=== PATIENT | female | born 1965 | race Caucasian/White ===

== ENCOUNTER 2019-09-20 07:57 | Observation (INO) | payer MEDICAID ==
[~2019-09-20] VITALS: Ht 162.6 cm; Wt 40.9 kg
[2019-09-20 08:43] LABS: BASOPHILS 0.6 % (0-2); HEMATOCRIT 39.4 % (36.0-48.0); HEMOGLOBIN 12.9 g/dL (12-16); IMMATURE GRANULOCYTES 0.3 % (0-5); LYMPHOCYTES 19.9 % (15-50); MCH 32.8 pg (26.0-34.0); MCHC 32.7 g/dL (31.0-37.0); MCV 100.3 fL (80.0-100.0); MONOCYTES 12.1 % (2-11); NEUTROPHILS 65.1 % (40-80); PLATELET COUNT 131 10x3/uL (130-400); RBC 3.93 10x6/uL (4.00-5.40); WBC 6.6 10x3/uL (4.8-10.8)
[2019-09-20 08:49] LABS: INR 0.95 (0.85-1.17); PROTIME 12.7 SECONDS (11.6-15.0)
[2019-09-20 08:50] LABS: APTT 34.6 SECONDS (22.8-39.4)
[2019-09-20 08:51] VITALS: BP 135/97
[2019-09-20 08:51] LABS: D-DIMER-QUANTITATIVE 0.84 ug/mLFEU (0.20-0.54)
[2019-09-20 09:16] LABS: CALC OSMOLALITY 279 mosm/kg (275-300); CALCIUM 8.8 mg/dL (8.5-10.1); CARBON DIOXIDE 28.6 mmol/L (21.0-32.0); CHLORIDE - SERUM 104 mmol/L (98-107); CREATININE - SERUM 1.2 mg/dL (0.6-1.3); GLUCOSE 89 mg/dL (74-106); POTASSIUM - SERUM 4.5 mmol/L (3.5-5.1); SODIUM 139 mmol/L (136-145); UREA NITROGEN 22 mg/dL (7-18); eGFR NON AFRICAN AMERICAN 50 mL/min (90-120)
[2019-09-20 09:32] LABS: ALBUMIN 3.4 g/dL (3.4-5.0); ALKALINE PHOSPHATASE 89 U/L (30-120); ALT (SGPT) 25 U/L (10-68); BILIRUBIN - TOTAL 0.34 mg/dL (0.2-1.3); CKMB 0.7 U/L (0.0-3.6); CREATINE KINASE 40 UL (21-215); MAGNESIUM - SERUM 2.1 mg/dL (1.8-2.4); PROTEIN - SERUM 7.5 g/dL (6.4-8.2)
[2019-09-20 09:45] LABS: TROPONIN-I < 0.017 ng/mL (0.000-0.060)
[2019-09-20 10:10] VITALS: BP 185/116
[2019-09-20 10:38] VITALS: BP 137/89
--- NOTE | 2019-09-20 13:17 | NUR ---
CALLED REPORT TO MARCIA SMITH AT 13:17
--- NOTE | 2019-09-20 13:32 | NUR ---
TRANSFER FROM ER BY W/C. MASONINTED TO ROOM. CALL LIGHT IN REACH. WILL CONT. PLAN OF CARE.
[2019-09-20 13:45] VITALS: BP 137/89; BMI 15.4
[2019-09-20 14:47] VITALS: Ht 162.6 cm; Wt 40.9 kg
[2019-09-20 15:53] LABS: CKMB 0.4 U/L (0.0-3.6); CREATINE KINASE 44 UL (21-215)
[2019-09-20 16:14] LABS: TROPONIN-I < 0.017 ng/mL (0.000-0.060)
[2019-09-20 18:10] VITALS: BP 148/78
[2019-09-20 20:00] VITALS: BP 162/86
--- NOTE | 2019-09-20 20:15 | NUR ---
EVENING ROUNDS COMPLETED. PT AAOX4, AFVSS, NO S/S OF DISTRESS. ALTHOUGH PT C/O PAIN IN SHOULDER AND BACK. PRN MORPHINE GIVEN. PT DENIES ANY FURTHER NEEDS AT THIS TIME. WILL CPOC.
[2019-09-20 20:43] LABS: CKMB 0.7 U/L (0.0-3.6); CREATINE KINASE 41 UL (21-215)
[2019-09-20 20:49] LABS: TROPONIN-I < 0.017 ng/mL (0.000-0.060)
[2019-09-21] VITALS: BP 140/76
[2019-09-21 02:51] LABS: BASOPHILS 0.3 % (0-2); EOSINOPHILS 1.8 % (0-7); HEMATOCRIT 31.8 % (36.0-48.0); IMMATURE GRANULOCYTES 0.3 % (0-5); LYMPHOCYTES 19.6 % (15-50); MCH 31.8 pg (26.0-34.0); MCHC 31.4 g/dL (31.0-37.0); MCV 101.3 fL (80.0-100.0); MEAN PLATELET VOLUME 9.2 fL (7.4-10.4); MONOCYTES 10.7 % (2-11); NEUTROPHILS 67.3 % (40-80); RDW 14.3 % (11.5-14.5); WBC 7.2 10x3/uL (4.8-10.8)
[2019-09-21 02:52] LABS: PLATELET COUNT 96 10x3/uL (130-400); RBC 3.14 10x6/uL (4.00-5.40)
[2019-09-21 03:15] LABS: ALBUMIN 2.8 g/dL (3.4-5.0); ALKALINE PHOSPHATASE 77 U/L (30-120); ALT (SGPT) 20 U/L (10-68); BILIRUBIN - TOTAL 0.21 mg/dL (0.2-1.3); CALC OSMOLALITY 280 mosm/kg (275-300); CALCIUM 7.9 mg/dL (8.5-10.1); CARBON DIOXIDE 28.8 mmol/L (21.0-32.0); CHLORIDE - SERUM 108 mmol/L (98-107); CKMB 0.5 U/L (0.0-3.6); CREATINE KINASE 39 UL (21-215); CREATININE - SERUM 1.1 mg/dL (0.6-1.3); GLUCOSE 93 mg/dL (74-106); MAGNESIUM - SERUM 1.9 mg/dL (1.8-2.4); SODIUM 140 mmol/L (136-145); UREA NITROGEN 19 mg/dL (7-18); eGFR NON AFRICAN AMERICAN 55 mL/min (90-120)
[2019-09-21 03:17] LABS: PLATELET ESTIMATE NORMAL
[2019-09-21 03:18] LABS: TROPONIN-I < 0.017 ng/mL (0.000-0.060)
[2019-09-21 05:31] VITALS: BP 120/68
[2019-09-21 08:19] VITALS: BP 149/85
--- NOTE | 2019-09-21 08:55 | NUR ---
AM MEDS GIVEN AT THIS TIME. ALSO GAVE 4MG OF MORPHINE FOR PAIN LEVEL OF 10/10. 4MG OF ZOFRAN GIVEN FOR NAUSEA. PT DENIES ANY OTHER NEEDS AT THIS TIME. CALL LIGHT IN REACH, NAD NOTED, WILL CONTINUE TO MONITOR.
[2019-09-21 12:21] VITALS: BP 141/88
--- NOTE | 2019-09-21 13:25 | NUR ---
4MG OF MORPHINE GIVEN FOR PAIN LEVEL OF 9/10. PT DENIES ANY OTHER NEEDS AT THIS TIME. CALL LIGHT IN REACH, NAD NOTED, WILL CONTINUE TO MONITOR.
[2019-09-21 16:20] VITALS: BP 157/86
[2019-09-21] MEDS ORDERED: OMNICEF300 MG PO (16:39)
[2019-09-21] MEDS ORDERED: AZITHROMYCIN500 MG PO (16:39)
--- NOTE | 2019-09-21 17:36 | NUR ---
PROVIDED VERBAL AND WRITTEN DISCHARGE TEACHING TO PT AND . PT VERY UPSET BECASUE SHE IS BEING DISCHARGE AND SHE IS STILL HAVING BACK PAIN, AND SHE WAS NOT GIVEN NOTHING FOR HER BP. INFORMED PT THAT SHE COULD CALL THE MEDICARE NUMBER IF SHE DID NOT AGREE WITH BEING DISCHARGE, PT STATED " I AM NOT STAYING WHERE I AM NOT WANTED. PT REFUSED TO BE WHEELED DOWN TO FRONT ENTRANCE. PT LEFT UNIT VIA ABULATORY WITH ALL BELONGIGNS, ACCOMPANIED BY , NAD NOTED.
== END 2019-09-21 17:42 | disposition home or self-care (01) ==
LOC: EDBD 07:57 → D.ER 07:57 → D.M2 10:21 → OBSVTIME 12:40 → D.M2 09-21 17:42
PROVIDERS: Family Medicine; ADMIT Emergency Medicine; ATTEND Emergency Medicine
DX: J18.9 Pneumonia, unspecified organism (principal); F17.203 Nicotine dependence unspecified, with withdrawal; R94.31 Abnormal electrocardiogram [ECG] [EKG]; I20.0 Unstable angina; I10 Essential (primary) hypertension

== ENCOUNTER 2019-09-24 18:24 | Inpatient (IN) | payer MEDICAID ==
[~2019-09-24] VITALS: Ht 162.6 cm; Wt 45.4 kg
--- NOTE | ~2019-09-24 | EEG ---
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 CT of head demonstrated diffuse atrophy. PROCEDURE: EEG done as a routine bedside portable recording using the standard 10-20 international electrode system. A 16-channel was used with 17th as EKG. Photic stimulation done as activation procedures. DESCRIPTION OF PROCEDURE: EEG opens with the patient awake with the record displaying a fairly well organized posterior dominant rhythm of 8-9 and occasionally 9-10 Hz, some moderate amplitude, symmetric and attenuates with eye opening. Occasional to frequent bilateral independent single theta slow waves were seen more prominent in the bitemporal regions. No epileptiform change such as spike, polyspike or spike and wave was seen. Photic stimulation did not yield significant driving response. There was a photomyogenic or photoparoxysmal response seen. IMPRESSION: Mildly abnormal EEG with theta slowing that could suggest mild cortical dysfunction. No evidence of seizure disorder or evidence of active seizure focus was found on this recording. TRANSINT:[id number] Voice Confirmation ID: [id number] DOCUMENT ID: [id number] MERVAT HOLM MD CC: [id number] DICTATION DATE: 09/27/19 1301 ACCOUNTING FILE CLERK: 09/28/19 1020 DIS IN 09/26/19 [facility] [address] [place] [address]
[~2019-09-24 18:24] MED LIST: AZITHROMYCIN500 MG PO; OMNICEF300 MG PO
[2019-09-24 18:39] LABS: BILIRUBIN NEGATIVE (NEGATIVE); GLUCOSE 50 mg/dL (NEGATIVE); KETONE MODERATE mg/dL (NEGATIVE); NITRITE NEGATIVE (NEGATIVE); UROBILINOGEN NORMAL (NORMAL)
[2019-09-24 18:41] LABS: BACTERIA MODERATE /hpf (NEGATIVE); EPITHELIAL CELLS 0-5 /hpf (0-5); GRANULAR CAST OCC /lpf (NONE SEEN); RED CELLS - URINE 0-5 /hpf (0-5)
[2019-09-24 18:44] LABS: UDS - AMPHET NEGATIVE QUAL (NEGATIVE); UDS - BARB NEGATIVE QUAL (NEGATIVE); UDS - BENZO NEGATIVE QUAL (NEGATIVE); UDS - COCAINE NEGATIVE QUAL (NEGATIVE); UDS - OPIATE POSITIVE QUAL (NEGATIVE); UDS - PCP NEGATIVE QUAL (NEGATIVE); UDS - THC POSITIVE QUAL (NEGATIVE)
[2019-09-24 18:44] LABS: BASOPHILS 0.3 % (0-2); EOSINOPHILS 0.1 % (0-7); HEMOGLOBIN 14.5 g/dL (12-16); IMMATURE GRANULOCYTES 0.6 % (0-5); LYMPHOCYTES 9.5 % (15-50); MCH 33.2 pg (26.0-34.0); MCV 100.7 fL (80.0-100.0); MEAN PLATELET VOLUME 9.6 fL (7.4-10.4); MONOCYTES 5.1 % (2-11); NEUTROPHILS 84.4 % (40-80); RBC 4.37 10x6/uL (4.00-5.40); RDW 13.9 % (11.5-14.5); WBC 13.9 10x3/uL (4.8-10.8)
[2019-09-24 18:48] LABS: PLATELET COUNT 171 10x3/uL (130-400)
--- NOTE | 2019-09-24 18:52 | NUR ---
PT RETURNED FROM CT AT THIS TIME.
[2019-09-24 18:55] LABS: ANION GAP 26.5 mmol/L (8-16); CARBON DIOXIDE 20.2 mmol/L (21.0-32.0); CREATININE - SERUM 1.5 mg/dL (0.6-1.3); POTASSIUM - SERUM 3.7 mmol/L (3.5-5.1)
--- NOTE | 2019-09-24 18:58 | NUR ---
PT IS ANSWERING QUESTIONS APPROPRIATELY AT THIS TIME. PT IS ORIENTED TO PERSON AND PLACE ONLY. WILL CONTINUE TO MONITOR. PT REPORTS SHE DOES SMOKE MARIJUANA, DENIES OTHER RECREATIONAL DRUG USE
[2019-09-24 19:01] LABS: ALBUMIN 4.1 g/dL (3.4-5.0); BILIRUBIN - TOTAL 0.39 mg/dL (0.2-1.3); PROTEIN - SERUM 8.2 g/dL (6.4-8.2)
[2019-09-24 19:06] VITALS: BP 187/113
--- NOTE | 2019-09-24 19:30 | NUR ---
PT ABLE TO GIVE MORE HISTORY AT THIS TIME. PT IS STILL EXHIBITING SOME CONFUSION. ALERT TO PERSON AND PLACE ONLY AT THIS TIME. PT ABLE TO STATE THAT HER CALLED THE AMBULANCE DUE TO HEADACHE, AND NOT BEING ABLE TO SEE. PT REPORTS SHE IS ABLE TO SEE AT THIS TIME.
[2019-09-24 20:09] VITALS: BP 184/117
[2019-09-24 20:18] VITALS: BP 169/88
--- NOTE | 2019-09-24 20:18 | NUR ---
PT LAYING IN BED. RESPIRATIONSA ARE EVEN AND UNLABORED. NO DISTRESS NOTED. FAMILY AT BEDSIDE. WILL CONTINUE TO MONITOR PATIENT.
--- NOTE | 2019-09-24 20:22 | NUR ---
BLOOD CULTURES DRAWN AT THIS TIME.
--- NOTE | 2019-09-24 20:25 | NUR ---
SECOND IV LINE STARTED AT THIS TIME.
[2019-09-24 20:40] VITALS: BP 177/93
[2019-09-24 21:01] VITALS: BP 173/92
--- NOTE | 2019-09-24 21:57 | NUR ---
PT ARRIVED ON FLOOR VIA STRETCHER ESCORTED BY ER NURSE AND SPOUSE. TRANSFERRED TO BED AND POSITIONED FOR COMFORT. PT IN DEEP SLEEP AND ARROUSES TO STIMULI. IV TO LEFT FA SALINE LOCKED, AND IV TO RIGHT FA SALINE LOCKED. BLOOD PRESSURE 188/114 AT ADMISSION VITALS.
--- NOTE | 2019-09-24 22:05 | NUR ---
CALLED FACILITY ATTENDANT TO OVERRIDE PO MEDS FOR ELEVATED BLOOD PRESSURE.
[2019-09-24 22:09] VITALS: BP 188/114; BP 188/144; BMI 17.2
--- NOTE | 2019-09-24 22:38 | NUR ---
GAVE SCHEDULED LABETALOL PO 100 MG AND CLONIDINE 0.1MG PO FOR ELEVATED BP ON ARRIVAL TO FLOOR OF 188/114. WILL MONITOR CLOSELY.
--- NOTE | 2019-09-25 00:40 | NUR ---
LACTIC ACID NOW 2.1
[2019-09-25 00:53] VITALS: BP 101/57
--- NOTE | 2019-09-25 03:59 | NUR ---
ASSISTED PT UP TO VOID IN RESTROOM. PT VERY UNSTABLE ON HER FEET AT THIS TIME.
[2019-09-25 04:07] VITALS: BP 138/76
[2019-09-25 06:30] LABS: ANION GAP 14.7 mmol/L (8-16); CALCIUM 8.6 mg/dL (8.5-10.1); CREATININE - SERUM 1.4 mg/dL (0.6-1.3); POTASSIUM - SERUM 3.7 mmol/L (3.5-5.1)
[2019-09-25 06:31] LABS: BASOPHILS 0.1 % (0-2); EOSINOPHILS 0.1 % (0-7); HEMATOCRIT 35.5 % (36.0-48.0); IMMATURE GRANULOCYTES 0.3 % (0-5); LYMPHOCYTES 16.4 % (15-50); MCH 31.8 pg (26.0-34.0); MCHC 32.1 g/dL (31.0-37.0); MCV 98.9 fL (80.0-100.0); MEAN PLATELET VOLUME 10.3 fL (7.4-10.4); MONOCYTES 9.8 % (2-11); NEUTROPHILS 73.3 % (40-80); RBC 3.59 10x6/uL (4.00-5.40); RDW 14.2 % (11.5-14.5)
[2019-09-25 06:32] LABS: HEMOGLOBIN 11.4 g/dL (12-16); PLATELET COUNT 119 10x3/uL (130-400); WBC 7.9 10x3/uL (4.8-10.8)
[2019-09-25 09:22] VITALS: BP 112/77
[2019-09-25 13:57] VITALS: BP 137/77
[2019-09-25 16:42] VITALS: BP 138/74
--- NOTE | 2019-09-25 19:00 | NUR ---
BEDSIDE REPORT RECEIVED AND CARE OF PT ASSUMED. PT LYING ON RIGHT SIDE, CURLED UP IN BED WITH EYES CLOSED. IV TO LEFT AND RIGHT FA SALINE LOCKED. TELEMETRY IN PLACE AND READING 67 SR W/ PAC'S AT THIS ASSESSMENT. WILL MONITOR FOR NEEDS.
[2019-09-25 20:00] VITALS: BP 113/57
[2019-09-26] VITALS: BP 148/83
[2019-09-26 04:00] VITALS: BP 155/87
[2019-09-26 04:48] LABS: BASOPHILS 0.9 % (0-2); EOSINOPHILS 1.6 % (0-7); HEMOGLOBIN 10.8 g/dL (12-16); IMMATURE GRANULOCYTES 0.4 % (0-5); LYMPHOCYTES 22.9 % (15-50); MCH 32.1 pg (26.0-34.0); MCHC 31.8 g/dL (31.0-37.0); MEAN PLATELET VOLUME 9.7 fL (7.4-10.4); MONOCYTES 13.2 % (2-11); PLATELET COUNT 118 10x3/uL (130-400); RBC 3.36 10x6/uL (4.00-5.40); RDW 14.2 % (11.5-14.5)
[2019-09-26 05:06] LABS: MCV 101.2 fL (80.0-100.0); WBC 5.5 10x3/uL (4.8-10.8)
[2019-09-26 05:22] LABS: ALBUMIN 3.1 g/dL (3.4-5.0); ANION GAP 11.2 mmol/L (8-16); BILIRUBIN - TOTAL 0.33 mg/dL (0.2-1.3); CALCIUM 8.5 mg/dL (8.5-10.1); CARBON DIOXIDE 31.6 mmol/L (21.0-32.0); CREATININE - SERUM 1.4 mg/dL (0.6-1.3); POTASSIUM - SERUM 3.8 mmol/L (3.5-5.1); PROTEIN - SERUM 6.6 g/dL (6.4-8.2)
[2019-09-26 08:55] VITALS: BP 145/86
--- NOTE | 2019-09-26 10:00 | NUR ---
ASSESSMENT PER FLOW SHEET. PATIENT IS WITHOUT DISTRESS.CALL LIGHT IN REACH.
[2019-09-26 11:51] VITALS: BP 112/83
[2019-09-26 12:56] VITALS: Ht 162.6 cm; Wt 45.4 kg
[2019-09-26] MEDS ORDERED: DILANTIN100 MG PO (13:17)
[2019-09-26] MEDS ORDERED: NORMODYNE / TR100 MG PO (13:17)
[2019-09-26] MEDS ORDERED: PROTONIX40 MG PO (13:18)
--- NOTE | 2019-09-26 14:06 | MORECARE ---
CASE MANAGEMENT DISCHARGE SUMMARY PATIENT: YOLA MORRIS UNIT: [id number] ADM DATE: 09/24/19 AGE: 54 : 67 SEX: F ROOM/BED: D.2216 AUTHOR: [email or web address] PHYSICIAN: REFERRING PHYSICIAN: CHRISITNE SRINIVASAN MD DATE OF SERVICE: 09/26/19 Discharge Plan Patient Name: YOLA MORRIS Facility: [facility]:[place] : 1965 Planned Disposition: Home or Self Care Anticipated Discharge Date: Discharge Date: Expected LOS: Initial Reviewer: [email or web address] Initial Review Date: 09/24/2019 Generated: 09/26/19 3:05 pm Comments DCP- Discharge Planning Updated by [email or web address]: Moni West on 09/26/19 1:[address] Patient Name: YOLA MORRIS Admission Status: ER Accout number: [id number] Admission Date: 09-24-2019 : 1965 Admission Diagnosis:SEPSIS, UNSPECIFIED ORGANISM Attending: CHRISTINE SRINIVASAN Current LOS: 2 Anticipated DC Date: Planned Disposition: Home or Self Care Primary Insurance: MEDICAID [place] Discharge Planning Comments: CM met with patient to complete initial dc planning assessment. CM educated patient on the CM role and verbal consent given by patient to complete assessment. Patient lives at home with her spouse where she is independent with her care. At discharge patient plans to return home and feels this is a safe discharge. CM discussed availability of home health, rehab services, and medical equipment. She does not think she needs any of this. She stated that she has been paid and her has been paid so they can afford her medication and will pick it up this time. Patient denied known discharge needs at this time. CM will continue to follow and will assist as needed with dc plans/needs. Supervisor Files: Moni West DCPIA - Discharge Planning Initial Assessment Updated by [email or web address]: Moni West on 09/26/19 1:58 pm * Is the patient Alert and Oriented? Yes * How many steps to enter\exit or inside your home? * PCP none/srinivasan * Pharmacy [facility] * Preadmission Environment Home with Family * ADLs Independent * Equipment None * List name and contact numbers for known caregivers / representatives who currently or will assist patient after discharge: SUSHANT LEDEZMA [phone] * Verbal permission to speak to the caregivers and representatives has been obtained from the patient. N/A * Community resources currently utilized None * Additional services required to return to the preadmission environment? No * Can the patient safely return to the preadmission environment? Yes * Has this patient been hospitalized within the prior 30 days at any hospital? Yes Patient Name: YOLA MORRIS Page [id number] at 1406 All edits/amendments must be made on the electronic document DICTATION DATE: 09/26/191404 BURR SANDER: BURT 09/26/19 140 RPT#: [id number] DC DATE: STATUS: ADM IN [facility] [address] [place] [address] END OF REPORT
--- NOTE | 2019-09-26 14:45 | NUR ---
IV DCD WITH CATH TIP INTACT X2. DISCHAGE INSTRUCTIONS,STATES UNDERSTANDING. DECLINED WHEELCHAIR FOR TRANSPORT TO CAR. LEFT UNIT WITH AT SIDE.
--- NOTE | 2019-09-27 09:32 | MORECARE ---
CASE MANAGEMENT DISCHARGE SUMMARY PATIENT: YOLA MORRIS UNIT: [id number] ADM DATE: 09/24/19 AGE: 54 : 67 SEX: F ROOM/BED: D.2216 AUTHOR: ROMY HICKS PHYSICIAN: REFERRING PHYSICIAN: CHRISTINE DUNCAN MD DATE OF SERVICE: 09/27/19 Discharge Plan Patient Name: YOLA MORRIS Facility: [facility]:[place] : 1965 Planned Disposition: Home or Self Care Anticipated Discharge Date: Discharge Date: 09/26/2019 Expected LOS: 0 Initial Reviewer: [email or web address] Initial Review Date: 09/24/2019 Generated: 09/27/19 10:31 am Comments DCP- Discharge Planning Updated by [email or web address]: Moni West on 09/26/19 1:[address] Patient Name: YOLA MORRIS Admission Status: ER Accout number: [id number] Admission Date: 09-24-2019 : 1965 Admission Diagnosis:SEPSIS, UNSPECIFIED ORGANISM Attending: CHRISTINE DUNCAN Current LOS: 2 Anticipated DC Date: Planned Disposition: Home or Self Care Primary Insurance: MEDICAID [place] Discharge Planning Comments: CM met with patient to complete initial dc planning assessment. CM educated patient on the CM role and verbal consent given by patient to complete assessment. Patient lives at home with her spouse where she is independent with her care. At discharge patient plans to return home and feels this is a safe discharge. CM discussed availability of home health, rehab services, and medical equipment. She does not think she needs any of this. She stated that she has been paid and her has been paid so they can afford her medication and will pick it up this time. Patient denied known discharge needs at this time. CM will continue to follow and will assist as needed with dc plans/needs. Quilting Machine Helper: Moni West DCPIA - Discharge Planning Initial Assessment Updated by [email or web address]: Moni West on 09/26/19 1:58 pm * Is the patient Alert and Oriented? Yes * How many steps to enter\exit or inside your home? * PCP none/craig * Pharmacy [facility] * Preadmission Environment Home with Family * ADLs Independent * Equipment None * List name and contact numbers for known caregivers / representatives who currently or will assist patient after discharge: SUSHANT LEDEZMA [phone] * Verbal permission to speak to the caregivers and representatives has been obtained from the patient. N/A * Community resources currently utilized None * Additional services required to return to the preadmission environment? No * Can the patient safely return to the preadmission environment? Yes * Has this patient been hospitalized within the prior 30 days at any hospital? Yes Last DP export: 09/26/19 1:06 p Patient Name: YOLA MORRIS Page [id number] at 0932 All edits/amendments must be made on the electronic document DICTATION DATE: 09/27/19930 HOUSE SHORER: BURT 09/27/19930 RPT#: [id number] DC DATE:09/26/19 STATUS: DIS IN [facility] [address] [place] [address] END OF REPORT
== END 2019-09-26 14:47 | disposition home or self-care (01) | DRG 871 ==
LOC: D.ER 18:24 → D.M2 20:41 → D.MS 20:41
PROVIDERS: Emergency Medicine; Family Medicine; ADMIT Emergency Medicine; ATTEND Emergency Medicine
DX: A41.9 Sepsis, unspecified organism (principal); R40.2123 Coma scale, eyes open, to pain, at hospital admission; N39.0 Urinary tract infection, site not specified; I67.4 Hypertensive encephalopathy; F17.213 Nicotine dependence, cigarettes, with withdrawal; N17.9 Acute kidney failure, unspecified; G40.409 Other generalized epilepsy and epileptic syndromes, not intractable, without status epilepticus; E86.0 Dehydration; R73.9 Hyperglycemia, unspecified; F12.90 Cannabis use, unspecified, uncomplicated; D53.9 Nutritional anemia, unspecified; R40.2353 Coma scale, best motor response, localizes pain, at hospital admission; R40.2243 Coma scale, best verbal response, confused conversation, at hospital admission